=== PATIENT | female | born 1990 | race Caucasian/White ===

== ENCOUNTER 2020-10-08 02:56 | Emergency (ER) | payer SELFPAY ==
[~2020-10-08] VITALS: Ht 152.4 cm; Wt 59.9 kg
--- NOTE | 2020-10-08 03:03 | NUR ---
PATIENT CAME TO THE ER BED 17 BIBRA FROM HOME C/O BILATERAL LOWER ABDOMINAL PAIN SINCE 6x WEEKS. PATIENT STATES THAT SHE HAD GONE TO [facility] 6x WEEKS AGO AND FOUND THAT SHE HAD RIGHT SIDED OVARIAN CYSTS. 2 DAYS LATER FOUND OUT HAT SHE HAD LEFT OVARIAN CYST. PATIENT HAD RECEIVED DICYCLOMINE AND NAPROXEN WITH NO RELIEF. PATIENT IS ALERT AND ORIENTED x4. AMBULATORY WITH A STEADY GAIT. VSS. BREATHING UNLABORED. DENIES SOB. CONNECTED TO THE MONITOR.
--- NOTE | 2020-10-08 03:15 | NUR ---
PT [id number] FROM HOME C/O LOWER ABDOMINAL PAIN ON AND OFF FOR PAST 6x WEEKS CURRENTLY NAUSEOUS. ALERT AND ORIENTED X3.
--- NOTE | 2020-10-08 03:20 | NUR ---
URINE COLLECTED AND SENT TO THE LAB.
[2020-10-08] MEDS ORDERED: KETOROLAC TROMETHAMINE 15 MG/ML VIAL ONE (03:29)
[2020-10-08 03:36] LABS: BILIRUBIN,URINE Negative (NEGATIVE); COLOR,URINE YELLOW (YELLOW); LEUKOCYTE ESTERASE ,URINE Negative (NEGATIVE); NITRITE, URINE Negative (NEGATIVE); PH,URINE 5.5 (5.0-8.0); PROTEIN,URINE Negative (NEGATIVE); UGLUCOSE Negative (NEGATIVE); UROBILINOGEN,URINE 0.2 EU/dL (0.2)
[2020-10-08 03:40] LABS: BASOPHILS % (AUTO) 0.6 % (0.0-2.0); EOSINOPHILS % (AUTO) 3.2 % (0.0-6.0); HEMATOCRIT 38 % (33-45); HEMOGLOBIN 12.4 g/dL (11.5-14.8); LYMPHOCYTES # (AUTO) 2.1 K/uL (0.8-4.8); LYMPHOCYTES % (AUTO) 26.2 % (20.0-44.0); MEAN CORPUSCULAR HGB CONC 33 g/dl (31.0-36.0); MEAN CORPUSCULAR VOLUME 83 fL (82-100); MONOCYTES # (AUTO) 0.5 K/uL (0.1-1.30); MONOCYTES % (AUTO) 6.2 % (2.0-12.0); NEUTROPHILS % (AUTO) 63.8 % (43.0-81.0); PLATELET COUNT (AUTO) 347 K/uL (150-450); RED BLOOD CELL COUNT(AUTO) 4.55 MIL/uL (4.0-5.2); WHITE BLOOD COUNT (AUTO) 7.9 K/uL (4.3-11.0)
[2020-10-08 03:49] LABS: CALCIUM, SERUM 8.7 mg/dL (8.5-10.1); CARBON DIOXIDE 28 mmol/L (21-32); CHLORIDE 106 mmol/L (98-107); CREATININE 0.9 mg/dL (0.6-1.3); GLUCOSE 103 mg/dL (74-106); POTASSIUM 4.1 mmol/L (3.5-5.1); SODIUM SERUM 143 mmol/L (136-145); UREA NITROGEN, BLOOD 20 mg/dL (7-18)
[2020-10-08] MEDS: KETOROLAC TROMETHAMINE INJ 30 MG/ML VIAL IV ONE (03:53)
[2020-10-08 04:01] LABS: ALANINE AMINOTRANSFERASE 15 U/L (12-78); ALBUMIN 4.1 g/dL (3.4-5.0); ALKALINE PHOSPHATASE 54 U/L (46-116); ASPARTATE AMINOTRANSFERASE 12 U/L (15-37); BILIRUBIN,DIRECT 0.1 mg/dL (0.0-0.2); BILIRUBIN,TOTAL 0.3 mg/dL (0.2-1.0); TOTAL PROTEIN, SERUM 7.6 g/dL (6.4-8.2)
[2020-10-08 04:13] LABS: BACTERIA,URINE Rare /HPF (None Seen); SQUAMOUS EPITHELIAL CELL,UR Few /HPF (None Seen); WBC,URINE 0-2 /HPF (0-3)
--- NOTE | 2020-10-08 04:22 | NUR ---
ULTRA SOUND AT BEDSIDE
[2020-10-08] MEDS ORDERED: HYDR-3972 PO (05:07)
[2020-10-08] MEDS ORDERED: IBUP-1957 PO (05:07)
[2020-10-08 05:22] VITALS: BP 118/68
--- NOTE | 2020-10-08 05:22 | NUR ---
IV removed. Catheter intact and site benign. Pressure and 4x4 applied to site. No bleeding noted.
--- NOTE | 2020-10-08 05:22 | NUR ---
Patient discharged to home in stable condition. Written and verbal after care instructions given. Patient verbalizes understanding of instruction.
== END 2020-10-08 05:22 | disposition home or self-care (01) ==
LOC: ER 03:03
DX: N83.201 Unspecified ovarian cyst, right side (principal); I88.0 Nonspecific mesenteric lymphadenitis; J45.909 Unspecified asthma, uncomplicated; Z98.890 Other specified postprocedural states; Z79.899 Other long term (current) drug therapy
CPT/HCPCS: 36415; 74176; 76856; 80048; 80076; 81001; 84702; 84703; 85025; 96374; 99285; J1885

== ENCOUNTER → 2021-02-05 | Emergency (ER) | payer MEDICAID, OTHER ==
[~2021-02-05] VITALS: Ht 152.4 cm; Wt 68.0 kg
[~2021-02-05] MED LIST: CEPH500T PO; HYDR-3972 PO; IBUP-1957 PO; KETOROLAC TROMETHAMINE INJ 30 MG/ML VIAL IM ONE; KETOROLAC TROMETHAMINE INJ 30 MG/ML VIAL ONE; NEOM28OI32 TP; TDAP [DIPH/PERTUSSIS/TET] 0.5 ML VIAL IM ONE
--- NOTE | 2021-02-05 20:38 | NUR ---
X RAY AT BEDSIDE
[2021-02-05 22:40] VITALS: BP 122/88
--- NOTE | 2021-02-05 22:51 | NUR ---
Patient discharged to home in stable condition. Rx and Written and verbal after care instructions given. Patient verbalizes understanding of instruction.
== END | disposition home or self-care (01) ==
LOC: ER 19:00
DX: S61.215A Laceration without foreign body of left ring finger without damage to nail, initial encounter (principal); S61.303A Unspecified open wound of left middle finger with damage to nail, initial encounter; J45.909 Unspecified asthma, uncomplicated; Z79.1 Long term (current) use of non-steroidal anti-inflammatories (NSAID); Z79.899 Other long term (current) drug therapy; W26.8XXA Contact with other sharp object(s), not elsewhere classified, initial encounter; Y93.89 Activity, other specified; Y92.89 Other specified places as the place of occurrence of the external cause; Y99.8 Other external cause status
CPT/HCPCS: 73130; 90471; 90715; 96372; 99284; A6403; J1885

== ENCOUNTER 2023-03-28 12:32 | Emergency (ER) | payer MEDICAID, OTHER ==
[~2023-03-28] VITALS: Ht 152.4 cm; Wt 67.6 kg
[~2023-03-28 12:32] MED LIST changes: -KETOROLAC TROMETHAMINE INJ 30 MG/ML VIAL IM ONE; -KETOROLAC TROMETHAMINE INJ 30 MG/ML VIAL ONE; -TDAP [DIPH/PERTUSSIS/TET] 0.5 ML VIAL IM ONE
[2023-03-28 14:45] LABS: APPEARANCE,URINE CLEAR (CLEAR); BILIRUBIN,URINE NEGATIVE (NEGATIVE); BLOOD, URINE TRACE-INTA Ery/uL (NEGATIVE); COLOR,URINE YELLOW (YELLOW); KETONES,URINE NEGATIVE (NEGATIVE); LEUKOCYTE ESTERASE ,URINE NEGATIVE (NEGATIVE); NITRITE, URINE NEGATIVE (NEGATIVE); PROTEIN,URINE NEGATIVE (NEGATIVE); UGLUCOSE NEGATIVE (NEGATIVE); UROBILINOGEN,URINE 0.2 EU/dL (0.2)
[2023-03-28 14:49] LABS: PREGNANCY TEST URINE QUAL NEGATIVE (NEGATIVE)
[2023-03-28 14:56] LABS: CREATININE 0.5 mg/dL (0.6-1.3); POTASSIUM 3.8 mmol/L (3.5-5.1)
[2023-03-28 15:04] LABS: ALBUMIN 3.5 g/dL (3.4-5.0); BILIRUBIN,DIRECT 0.1 mg/dL (0.0-0.2); BILIRUBIN,TOTAL 0.3 mg/dL (0.2-1.0); TOTAL PROTEIN, SERUM 7.7 g/dL (6.4-8.2)
[2023-03-28 15:06] LABS: BASOPHILS % (AUTO) 0.2 % (0.0-2.0); EOSINOPHILS # (AUTO) 0.1 K/uL (0.0-0.7); EOSINOPHILS % (AUTO) 0.8 % (0.0-6.0); HEMATOCRIT 39 % (33-45); HEMOGLOBIN 12.4 g/dL (11.5-14.8); LYMPHOCYTES # (AUTO) 1.9 K/uL (0.8-4.8); LYMPHOCYTES % (AUTO) 16.5 % (20.0-44.0); MEAN CORPUSCULAR HEMOGLOBIN 26 PG (26.0-33.0); MEAN CORPUSCULAR HGB CONC 32 g/dl (31.0-36.0); MEAN CORPUSCULAR VOLUME 82 fL (82-100); MONOCYTES # (AUTO) 0.6 K/uL (0.1-1.30); MONOCYTES % (AUTO) 5.6 % (2.0-12.0); NEUTROPHILS # (AUTO) 8.7 K/uL (1.8-8.9); NEUTROPHILS % (AUTO) 76.9 % (43.0-81.0); PLATELET COUNT (AUTO) 367 K/uL (150-450); RED BLOOD CELL COUNT(AUTO) 4.77 MIL/uL (4.0-5.2); RED CELL DISTRIBUTION WIDTH 14.3 % (11.5-15.0); WHITE BLOOD COUNT (AUTO) 11.4 K/uL (4.3-11.0)
[2023-03-28] MEDS ORDERED: KETOROLAC TROMETHAMINE INJ 30 MG/ML VIAL ONE (15:43)
[2023-03-28] MEDS: KETOROLAC TROMETHAMINE INJ 30 MG/ML VIAL IV ONE (15:46)
[2023-03-28 15:59] LABS: ADD URINE CULTURE NO; BACTERIA,URINE None seen /HPF (None Seen); RBC,URINE 0-2 /HPF (0-2); WBC,URINE 0-2 /HPF (0-3)
[2023-03-28 16:17] VITALS: BP 140/86; TEMP 98.2; O2SAT 96
[2023-03-29] MEDS ORDERED: KETO10TA2 PO (13:25)
[2023-03-29] MEDS ORDERED: HYDR-4209 PO (13:25)
== END 2023-03-28 16:18 | disposition home or self-care (01) ==
LOC: ER 12:40
DX: R10.32 Left lower quadrant pain (principal)
CPT/HCPCS: 99285; 74176; 96374; 76856; 85025; 80048; 83690; 80076; 84703; 81001; 36415; J1885

== ENCOUNTER 2023-03-29 12:26 | Emergency (ER) | payer MEDICAID ==
[~2023-03-29] VITALS: Ht 152.4 cm; Wt 64.4 kg
[2023-03-29 13:23] LABS: BASOPHILS % (AUTO) 0.3 % (0.0-2.0); EOSINOPHILS # (AUTO) 0.1 K/uL (0.0-0.7); EOSINOPHILS % (AUTO) 0.8 % (0.0-6.0); HEMATOCRIT 39 % (33-45); HEMOGLOBIN 12.7 g/dL (11.5-14.8); LYMPHOCYTES # (AUTO) 1.8 K/uL (0.8-4.8); LYMPHOCYTES % (AUTO) 17.6 % (20.0-44.0); MEAN CORPUSCULAR HEMOGLOBIN 27 PG (26.0-33.0); MEAN CORPUSCULAR HGB CONC 33 g/dl (31.0-36.0); MEAN CORPUSCULAR VOLUME 81 fL (82-100); MONOCYTES # (AUTO) 0.5 K/uL (0.1-1.30); NEUTROPHILS # (AUTO) 7.7 K/uL (1.8-8.9); NEUTROPHILS % (AUTO) 76.3 % (43.0-81.0); PLATELET COUNT (AUTO) 380 K/uL (150-450); RED BLOOD CELL COUNT(AUTO) 4.77 MIL/uL (4.0-5.2); RED CELL DISTRIBUTION WIDTH 14.4 % (11.5-15.0); WHITE BLOOD COUNT (AUTO) 10.1 K/uL (4.3-11.0)
[2023-03-29] MEDS ORDERED: KETOROLAC TROMETHAMINE INJ 30 MG/ML VIAL ONE (13:24)
[2023-03-29] MEDS ORDERED: MORPHINE SULFATE INJ 4 MG/ML DISP.SYRIN ONE (13:24)
[2023-03-29] MEDS ORDERED: HYDR-4209 PO (13:25)
[2023-03-29] MEDS ORDERED: KETO10TA2 PO (13:25)
[2023-03-29] MEDS ORDERED: MORPHINE SULFATE INJ 2 MG/ML DISP.SYRIN IV ONE (13:30)
[2023-03-29] MEDS ORDERED: KETOROLAC TROMETHAMINE INJ 30 MG/ML VIAL IV ONE (13:30)
[2023-03-29] MEDS: HYDROCODONE/APAP 5/325MG TABLET PO ONE (13:30)
[2023-03-29 13:34] LABS: CALCIUM, SERUM 9.5 mg/dL (8.5-10.1); CREATININE 0.5 mg/dL (0.6-1.3)
[2023-03-29] MEDS ORDERED: HYDROCODONE/APAP 5/325MG TABLET ONE (13:36)
[2023-03-29 13:46] VITALS: BP 121/86; TEMP 97.9; O2SAT 100
[2023-03-29 13:47] LABS: ALBUMIN 3.8 g/dL (3.4-5.0); BILIRUBIN,DIRECT 0.1 mg/dL (0.0-0.2); BILIRUBIN,TOTAL 0.4 mg/dL (0.2-1.0); TOTAL PROTEIN, SERUM 7.8 g/dL (6.4-8.2)
[2023-03-29 13:57] LABS: INR 0.97 (0.91-1.10); PARTIAL THROMBOPLASTIN TIME 29.5 SEC (24.3-34.3); PROTHROMBIN TIME 10.3 SECS (9.2-11.1)
== END 2023-03-29 13:46 | disposition home or self-care (01) ==
LOC: ER 12:32
DX: N83.202 Unspecified ovarian cyst, left side (principal); R10.32 Left lower quadrant pain
CPT/HCPCS: 36415; 80048-TC; 80076-TC; 83690-TC; 85025-TC; 85730-TC; J1885; J2270

== ENCOUNTER 2024-11-21 21:35 | Emergency (ER) | payer BC, MEDICAID ==
[~2024-11-21] VITALS: Ht 152.4 cm; Wt 64.9 kg
[~2024-11-21 21:35] MED LIST changes: +HYDR-4209 PO; +KETO10TA2 PO
[2024-11-21 23:09] VITALS: O2SAT 100
[2024-11-21] MEDS: ALBUTEROL FS 2.5 MG/0.5 ML VIAL.NEB NEB ONE (23:09)
[2024-11-21 23:19] VITALS: O2SAT 100; O2SAT 99
[2024-11-21] MEDS ORDERED: ALBUTEROL FS 2.5 MG/0.5 ML VIAL.NEB ONE (23:39)
[2024-11-22] MEDS ORDERED: ALBU2.5V38 NEB (00:02)
[2024-11-22 00:15] VITALS: BP 130/93; TEMP 208.8; O2SAT 100
== END 2024-11-22 00:16 | disposition home or self-care (01) ==
LOC: ER 21:39
DX: R05.9 Cough, unspecified (principal); Z79.1 Long term (current) use of non-steroidal anti-inflammatories (NSAID)
CPT/HCPCS: 71045-TC